=== PATIENT | female | born 1995 | race Caucasian/White ===

== ENCOUNTER 2016-12-13 09:57 | Emergency (ER) | payer OTHER ==
[~2016-12-13] VITALS: Ht 165.1 cm; Wt 71.8 kg
[2016-12-13 10:01] VITALS: BP 137/84; PULSE 111; TEMP 36.4; O2SAT 98; Ht 165.1 cm; Wt 71.8 kg
--- NOTE | 2016-12-13 10:27 | EMERGENCY ROOM VISIT NOTE ---
ED Visit Note First contact with patient: 10:03 CHIEF COMPLAINT: Left third toe injury yesterday. HISTORY OF PRESENT ILLNESS: Patient is an otherwise healthy 21-year-old white female who presents to the emergency department for evaluation of left third toe pain. She tripped and fell, initially injuring the toe. There was no bleeding. She notes that it was swollen, ecchymotic and tender. The swelling extended into the dorsum of her foot slightly, but has subsided. She rates her pain a 6/10. She has been wearing sandals because she cannot get into a sneaker. She tried to find a walking boot at our local stores but was unable to. REVIEW OF SYSTEMS: Review of systems as per HPI. All other systems reviewed were negative. At least 6 systems reviewed. PMH: Electronic medical records are reviewed and summarized as above/below. See Problem List. SOCIAL HISTORY: Patient lives at home. She is a college student. Nonsmoker. PHYSICAL EXAM: Vital Signs: Reviewed Nurse's notes. The ankle joint is not swollen or tender. The foot is not swollen and the skin is intact. The left third toe is ecchymotic, no pain in the metatarsal distribution. Swollen and tender along the shaft from the PIP joint to the tip. There is no active bleeding and no laceration. Distal pulses are intact. Sensation is intact. EMERGENCY DEPARTMENT COURSE: The patient was seen and evaluated as above. Conservative care measures were discussed. Patient declines x-ray at this time , which I think is reasonable. She was given a postoperative shoe. Differential diagnoses include fracture, sprain, contusion, dislocation, laceration, among others. Problem List Medical Problems: (1) Abdominal pain Status: Resolved Current/Historical Medications Scheduled Control Pills ( Control Pills), 1 TAB PO DAILY Allergies Coded Allergies: No Known Allergies (Unverified , 10/20/15) Vital Signs Date Time Temp Pulse Resp B/P (MAP) Pulse Ox O2 Delivery O2 Flow Rate FiO2 12/13/16 10:01 36.4 111 18 137/84 98 Room Air Departure Information Impression Primary Impression: Toe fracture, left Referrals [facility] (PCP) Patient Instructions My [facility] Additional Instructions Ibuprofen(Motrin, Advil) may be used for fever or pain. Use 600mg every six hours as needed. Take with food. Avoid using more than 2400mg in a 24 hour period. Do not use 2400mg per day for more than three consecutive days without physician direction. Prolonged inappropriate use can lead to stomach upset or ulcers. This medication can be taken if you need to drive, work, or perform activities which may be dangerous when taking narcotic pain medication. (AND/OR) Acetaminophen(Tylenol) may be used for fever or pain. Use 1000mg every six hours as needed. Avoid using more than 3000mg in a 24 hour period. This medication can be taken if you need to drive, work, or perform activities which may be dangerous when taking narcotic pain medication. Ice compresses for 20 minutes at a time four times daily for 2-3 days. Use the postoperative shoe as instructed. May continue to isidra tape as needed. Rest and elevate your injury. Resume normal activity as your symptoms allow. Continue current medications. Return to the ER immediately for any numbness, tingling, severe pain, extreme swelling in the extremity or as needed. Follow up with orthopedics if needed.
[2016-12-13] MEDS ORDERED: BCPILLS PO (10:34)
== END 2016-12-13 10:52 | disposition home or self-care (01) ==
LOC: C.EDB 09:58 → C.EDA 10:52
DX: S92.502A Displaced unspecified fracture of left lesser toe(s), initial encounter for closed fracture (principal); W18.39XA Other fall on same level, initial encounter